=== PATIENT | female | born 1990 | race Caucasian/White ===

== ENCOUNTER 2018-12-19 07:50 | Inpatient (IN) | payer BC ==
[~2018-12-19] VITALS: Ht 180.3 cm; Wt 115.9 kg
[2018-12-19] MEDS ORDERED: OXYTOCIN 30U/ 0.9% NaCL 500ML 500 ML IV ONE (08:03)
[2018-12-19] MEDS ORDERED: D5%-LACTATED RINGERS 1,000 ML IV SCH (08:03)
[2018-12-19] MEDS ORDERED: LIDOCAINE 1%, 20ML ONE (08:11)
[2018-12-19] MEDS ORDERED: NEWBORN KIT ONE ×2 (08:11→10:35)
[2018-12-19] MEDS ORDERED: OXYTOCIN 30U/ 0.9% NaCL 500ML 500 ML ONE ×2 (08:12→11:40)
[2018-12-19] MEDS ORDERED: MISOPROSTOL 200 MCG TABLET ONE (08:12)
[2018-12-19] MEDS: LACTATED RINGERS 1,000 ML IV SCH ×2 (08:16→11:44)
[2018-12-19 08:17] VITALS: BP 108/52
[2018-12-19] MEDS ORDERED: FENTANYL PF 100 MCG/2ML IVPush PRN (08:30)
[2018-12-19] MEDS ORDERED: TERBUTALINE 1 MG/ML, 1ML IVPush PRN (08:30)
[2018-12-19] MEDS ORDERED: FENTANYL PF 100 MCG/2ML IV PRN (08:30)
[2018-12-19] MEDS ORDERED: ONDANSETRON 2MG/ML, 2ML IVPush PRN (08:30)
[2018-12-19] MEDS ORDERED: CALCIUM CARBONATE 500 MG TAB.CHEW PO PRN (08:30)
[2018-12-19 09:00] LABS: BASOPHILS # (AUTO) 0.04 x10^3/uL (0-0.1); BASOPHILS % (AUTO) 0 % (0-1); EOSINOPHILS # (AUTO) 0.04 x10^3/uL (0-0.4); EOSINOPHILS % (AUTO) 0 % (1-7); LYMPHOCYTES % (AUTO) 15 % (22-44); MD NO; MEAN CORPUSCULAR HEMOGLOBIN 29.9 pg (27.0-34.8); MEAN CORPUSCULAR HGB CONC 32.8 g/dL (32.4-35.8); MEAN CORPUSCULAR VOLUME 91.2 fL (80-100); MEAN PLATELET VOLUME 9.1 fL (7.4-10.4); MONOCYTES # (AUTO) 0.59 x10^3/uL (0.2-0.8); MONOCYTES % (AUTO) 4 % (2-9); NEUTROPHILS % (AUTO) 81 % (42-75); PLATELET COUNT 264 x10^3/uL (130-400); RED BLOOD COUNT 4.76 x10^6/uL (3.82-5.3); RED CELL DISTRIBUTION WIDTH 14.3 % (9.6-15.2)
[2018-12-19] MEDS ORDERED: OXYTOCIN 30U/ 0.9% NaCL 500ML 500 ML IV SCH (10:47)
[2018-12-19] MEDS: OXYTOCIN 30U/ 0.9% NaCL 500ML 500 ML IV SCH (10:47)
[2018-12-19] MEDS ORDERED: MISOPROSTOL 200 MCG TABLET PR PRN ×2 (11:00)
[2018-12-19] MEDS ORDERED: OXYcodone/APAP 5/325MG TABLET PO PRN (11:00)
[2018-12-19] MEDS ORDERED: BISACODYL 10 MG SUPP PR PRN (11:00)
[2018-12-19] MEDS ORDERED: ACETAMINOPHEN 325 MG TABLET PO PRN (11:00)
[2018-12-19] MEDS ORDERED: ONDANSETRON 2MG/ML, 2ML IV PRN (11:00)
[2018-12-19] MEDS ORDERED: RHOGAM FROM BLOOD BANK 1 NOTE EA IM ONE (11:00)
[2018-12-19] MEDS ORDERED: HYDROcodone/APAP 5/325 TABLET PO PRN (11:00)
[2018-12-19 13:00] VITALS: BP 114/71
[2018-12-19] MEDS: IBUPROFEN 800 MG TABLET PO PRN ×2 (13:16→22:09)
[2018-12-19 17:00] VITALS: BP 123/74
[2018-12-19 18:39] LABS: BASOPHILS # (AUTO) 0.08 x10^3/uL (0-0.1); BASOPHILS % (AUTO) 1 % (0-1); EOSINOPHILS # (AUTO) 0.01 x10^3/uL (0-0.4); EOSINOPHILS % (AUTO) 0 % (1-7); LYMPHOCYTES # (AUTO) 1.65 x10^3/uL (1-3.4); LYMPHOCYTES % (AUTO) 12 % (22-44); MD NO; MEAN CORPUSCULAR HEMOGLOBIN 30.3 pg (27.0-34.8); MEAN CORPUSCULAR HGB CONC 32.9 g/dL (32.4-35.8); MEAN CORPUSCULAR VOLUME 92.3 fL (80-100); MEAN PLATELET VOLUME 9.4 fL (7.4-10.4); MONOCYTES # (AUTO) 0.87 x10^3/uL (0.2-0.8); MONOCYTES % (AUTO) 6 % (2-9); NEUTROPHILS # (AUTO) 11.33 x10^3/uL (1.8-6.8); NEUTROPHILS % (AUTO) 81 % (42-75); PLATELET COUNT 247 x10^3/uL (130-400); RED BLOOD COUNT 4.34 x10^6/uL (3.82-5.3); RED CELL DISTRIBUTION WIDTH 14.4 % (9.6-15.2)
[2018-12-19 20:00] VITALS: BP 113/75
[2018-12-19] MEDS: DOCUSATE 100 MG CAPSULE PO PRN (22:12)
[2018-12-20 01:00] VITALS: BP 106/62
[2018-12-20 04:30] VITALS: BP 119/77
[2018-12-20 08:45] VITALS: BP 117/81
[2018-12-20] MEDS: IBUPROFEN 800 MG TABLET PO PRN ×2 (12:14→20:39)
[2018-12-20] MEDS: OXYTOCIN 30U/ 0.9% NaCL 500ML 500 ML IV SCH ×3 (19:31→19:38)
[2018-12-20 19:35] VITALS: BP 108/75
[2018-12-20] MEDS: PRENATAL VIT/IRON/FA 1 EACH TABLET PO SCH (19:37)
[2018-12-21] MEDS: OXYTOCIN 30U/ 0.9% NaCL 500ML 500 ML IV SCH ×2 (02:47→12:47)
[2018-12-21] MEDS: PRENATAL VIT/IRON/FA 1 EACH TABLET PO SCH (07:26)
[2018-12-21] MEDS: DOCUSATE 100 MG CAPSULE PO PRN (07:27)
[2018-12-21] MEDS: IBUPROFEN 800 MG TABLET PO PRN ×2 (07:27→17:29)
[2018-12-21 08:05] VITALS: BP 121/80
[2018-12-21] MEDS ORDERED: IBUP-1223 PO (10:31)
== END 2018-12-21 18:45 | disposition home or self-care (01) | DRG 807 ==
LOC: LDOP 07:50 → LDIP 08:05 → 2NW 12:25
PROVIDERS: ADMIT Obstetrics & Gynecology; ATTEND Obstetrics & Gynecology
PROC: 10E0XZZ Delivery of Products of Conception, External Approach (ICD-10-PCS; principal; 2018-12-19)
DX: O99.354 Diseases of the nervous system complicating childbirth (principal); Z37.0 Single live birth; Z3A.39 39 weeks gestation of pregnancy; Z80.41 Family history of malignant neoplasm of ovary; Z87.59 Personal history of other complications of pregnancy, childbirth and the puerperium; Z91.018 Allergy to other foods; G43.909 Migraine, unspecified, not intractable, without status migrainosus
CPT/HCPCS: 36415; 85025; 86850; 86900; G0378; J2590; J7120